=== PATIENT | male | born 1975 | race American Indian/Alaskan Native ===

== ENCOUNTER 2018-04-14 12:33 | Emergency (ER) | payer SELFPAY ==
[2018-04-14] MEDS ORDERED: ASPIRIN PO ONE (13:04)
[2018-04-14] MEDS ORDERED: NACL 0.9% 1000 ML 1,000 ML IV ONE (13:26)
[2018-04-14] MEDS ORDERED: ATIVAN IV ONE (13:26)
--- NOTE | 2018-04-14 13:31 | Emergency Department Report ---
ED Chest Pain HPI - General Chief Complaint: Chest Pain Stated Complaint: AMS Time Seen by Provider: 04/14/18 13:19 Source: family, EMS Mode of arrival: Stretcher Limitations: No Limitations - History of Present Illness Initial Comments: Patient is 42 years old male history of cocaine abuse. Patient brought to the ER after he collapsed at grocery store. Patient brought to the ER via EMS with chief complaint LEFT-sided chest pain pressure radiated to his left arm. Patient had similar episodes in 2014. Patient stated that he use cocaine 2 days ago. Patient denied any shortness of breath, nausea or vomiting. MD Complaint: chest pain Onset: during exertion Pain Location: left chest Severity: moderate Severity scale (0 -10): 6 Quality: pressure, squeezing Consistency: constant - Related Data Allergies Allergy/AdvReac Type Severity Reaction Status Date / Time No Known Allergies Allergy Unverified 04/14/18 13:04 Heart Score - HEART Score History: Moderately suspicious EKG: Non-specific Age: < 45 Risk factors: No known risk factors Troponin: < normal limit HEART Score: 2 - Critical Actions Critical Actions: 0-3 pts:0.9-1.7%risk of adverse cardiac event.Candidate for discharge ED Review of Systems ROS: Stated complaint: AMS Other details as noted in HPI Comment: All other systems reviewed and negative Constitutional: denies: chills, fever Respiratory: denies: cough, orthopnea, shortness of breath, SOB with exertion Cardiovascular: chest pain. denies: palpitations, dyspnea on exertion Gastrointestinal: denies: abdominal pain, nausea, vomiting, diarrhea, constipation, hematemesis, melena, hematochezia Neurological: denies: headache, weakness, numbness, paresthesias, abnormal gait , vertigo ED Past Medical Hx - Past Medical History Previous Medical History?: Yes Hx Heart Attack/AMI: Yes (x3) Additional medical history: TIA - Surgical History Past Surgical History?: No - Social History Smoking Status: Current Every Day Smoker Substance Use Type: Alcohol, Cocaine ED Physical Exam - General Limitations: No Limitations General appearance: alert, in no apparent distress - Head Head exam: Present: atraumatic, normocephalic, normal inspection - Eye Eye exam: Present: normal appearance - ENT ENT exam: Present: normal exam, normal orophraynx, mucous membranes moist - Neck Neck exam: Present: normal inspection, full ROM. Absent: tenderness, meningismus - Respiratory Respiratory exam: Present: normal lung sounds bilaterally. Absent: respiratory distress, wheezes, rales, rhonchi, stridor, chest wall tenderness, accessory muscle use, decreased breath sounds, prolonged expiratory - Cardiovascular Cardiovascular Exam: Present: bradycardia. Absent: systolic murmur, diastolic murmur - GI/Abdominal GI/Abdominal exam: Present: soft, normal bowel sounds. Absent: distended, tenderness, guarding, rebound, rigid, organomegaly, mass, bruit, pulsatile mass - Extremities Exam Extremities exam: Present: normal inspection, full ROM, normal capillary refill. Absent: tenderness, pedal edema, joint swelling, calf tenderness - Back Exam Back exam: Present: normal inspection, full ROM. Absent: tenderness, CVA tenderness (R), CVA tenderness (L), muscle spasm, paraspinal tenderness, vertebral tenderness - Neurological Exam Neurological exam: Present: alert, oriented X3, CN II-XII intact, normal gait - Skin Skin exam: Present: warm, intact, normal color ED Course Vital Signs 04/14/18 04/14/18 04/14/18 13:00 13:01 13:30 Temperature 97.8 F Pulse Rate 52 L 55 L 52 L Respiratory 16 22 28 H Rate Blood Pressure 125/71 118/70 119/75 O2 Sat by Pulse 99 100 100 Oximetry 04/14/18 04/14/18 14:00 14:30 Temperature Pulse Rate 51 L 54 L Respiratory 12 14 Rate Blood Pressure 116/68 112/74 O2 Sat by Pulse 100 100 Oximetry - Reevaluation(s) Reevaluation #1: 04/14/18 15:05 Patient stated that he is feeling better. 04/14/18 15:44 ED Medical Decision Making - Lab Data Result diagrams: 04/14/18 13:18 04/14/18 13:09 - EKG Data -: EKG Interpreted by Ri EKG shows normal: sinus rhythm Rate: bradycardia - EKG Data Interpretation: no acute changes - Radiology Data Radiology results: report reviewed Referring Physician: AMMY FIGUEROA Patient Name: NIRMALA LAGUNA Date of : 1975 Sex: Male Report Date: 2018-04-14 Report Status: Finalized Findings [facility] [address] [place] [address] XRay Report Signed Patient: NIRMALA LAGUNA MR#: [id number] : 1975 Acct:[id number] Age/Sex: 42 / M ADM Date: 04/14/18 Loc: ED Attending Dr: Ordering Physician: AMMY FIGUEROA Date of Service: 04/14/18 Procedure(s): XR chest 1V ap Accession Number(s): [id number] cc: AMMY FIGUEROA Fluoro Time In Minutes: PORTABLE CHEST: Chest pain An AP portable view of the chest demonstrates a normal cardiac contour considering the limits of this technique. The lungs are clear with no evidence of infiltrate, fluid or failure. IMPRESSION: Normal portable chest. Transcribed By: Robby Dictated By: DONNA WEINER MD Electronically Authenticated By: DONNA WEINER MD Signed Date/Time: 04/14/18 140 DD/ 140 TD/TT: 04/14/181402 - Medical Decision Making Discussed the patient is Dr. Alas, he agreed to admit the patient to his service. Critical care attestation.: If time is entered above; I have spent that time in minutes in the direct care of this critically ill patient, excluding procedure time. ED Disposition Clinical Impression: Chest pain, Cocaine abuse Disposition: OP ADMIT IP TO THIS HOSP Is pt being admited?: Yes Condition: Stable Instructions: Chest Pain (ED) Referrals: PRIMARY CARE, [Primary Care Provider] - 3-5 Days
[2018-04-14 13:38] LABS: Basophils % (Auto) 0.9 % (0.0-1.8); Eosinophils % (Auto) 0.4 % (0.0-4.3); Hematocrit 41.3 % (35.5-45.6); Lymphocytes # (Auto) 1.9 K/mm3 (1.2-5.4); Lymphocytes % (Auto) 54.9 % (13.4-35.0); Mean Corpuscular HGB Conc 34 % (32-34); Mean Corpuscular Hemoglobin 29 pg (28-32); Mean Corpuscular Volume 85 fl (84-94); Monocytes # (Auto) 0.3 K/mm3 (0.0-0.8); Monocytes % (Auto) 8.2 % (0.0-7.3); Platelet Count 236 K/mm3 (140-440); Red Blood Count 4.85 M/mm3 (3.65-5.03); Red Cell Distribution Width 14.3 % (13.2-15.2)
[2018-04-14 13:54] LABS: BUN/Creatinine Ratio 15; Blood Urea Nitrogen 17 mg/dL (9-20); Calcium 9.7 mg/dL (8.4-10.2); Hemolysis Index 13
--- NOTE | 2018-04-14 14:24 | XRay Report ---
PORTABLE CHEST: Chest pain An AP portable view of the chest demonstrates a normal cardiac contour considering the limits of this technique. The lungs are clear with no evidence of infiltrate, fluid or failure. IMPRESSION: Normal portable chest.
[2018-04-14 15:32] LABS: Alanine Aminotransferase 18 units/L (7-56); Albumin 4.2 g/dL (3.9-5)
[2018-04-14 15:35] LABS: Bilirubin,Direct < 0.2 mg/dL (0-0.2)
[2018-04-14 17:51] LABS: Amphetamine Screen,Urine PRESUMPTIVE NEGATIVE; Benzodiazepines Screen,Urine PRESUMPTIVE NEGATIVE; Methadone Screen,Urine PRESUMPTIVE NEGATIVE; Opiate Screen,Urine PRESUMPTIVE NEGATIVE
[2018-04-14 18:08] LABS: Cannabinoid Screen,Urine PRESUMPTIVE POSITIVE; Cocaine Screen,Urine PRESUMPTIVE POSITIVE
--- NOTE | 2018-04-14 19:15 | History and Physical Report ---
Medications and Allergies Allergies Allergy/AdvReac Type Severity Reaction Status Date / Time No Known Allergies Allergy Unverified 04/14/18 13:04 Home Medications Medication Instructions Recorded Confirmed Last Taken Type No Known Home Medications [No 04/14/18 04/14/18 Unknown History Reported Home Medications] Exam - Constitutional Vitals: Temp Pulse Resp BP Pulse Ox 97.8 F 61 15 111/60 100 04/14/18 13:00 04/14/18 18:30 04/14/18 18:30 04/14/18 18:30 04/14/18 18:30 Results - Labs CBC & Chem 7: 04/14/18 13:18 04/14/18 13:09 Labs: Abnormal lab results 04/14/18 Range/Units 13:18 WBC 3.5 L (4.5-11.0) K/mm3 Lymph % (Auto) 54.9 H (13.4-35.0) % Isabella % (Auto) 8.2 H (0.0-7.3) % Seg Neutrophils % 35.6 L (40.0-70.0) % Seg Neutrophils # 1.2 L (1.8-7.7) K/mm3
[2018-04-14 20:30] VITALS: BP 95/37
== END 2018-04-14 20:40 | disposition admitted as inpatient to this hospital (09) ==
LOC: ED 12:33
DX: R07.89 Other chest pain (principal); F14.10 Cocaine abuse, uncomplicated; I25.2 Old myocardial infarction; F17.200 Nicotine dependence, unspecified, uncomplicated
CPT/HCPCS: 36415; 71045; 80048; 80074; 80307; 84484; 85025; 85379; 93005; 93010; 96361; 96374; 99284; J2060; J7030

== ENCOUNTER 2019-09-04 02:29 | Emergency (ER) | payer SELFPAY ==
[2019-09-04] MEDS ORDERED: FAMOTIDINE 20 MG/2 ML INJ IV ONE (02:36)
[2019-09-04] MEDS ORDERED: SODIUM CHLORIDE 0.9% 1000 ML 1,000 ML IV ONE ×2 (02:36→04:00)
[2019-09-04] MEDS ORDERED: ONDANSETRON 4 MG/2 ML INJ IV ONE (02:36)
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
[2019-09-04 03:09] LABS: Hematocrit 37.9 % (35.5-45.6); Hemoglobin 12.5 gm/dl (11.8-15.2); Mean Corpuscular HGB Conc 33 % (32-34); Mean Corpuscular Volume 85 fl (84-94); Platelet Count 237 K/mm3 (140-440); Red Blood Count 4.48 M/mm3 (3.65-5.03)
--- NOTE | 2019-09-04 03:12 | XRay Report ---
CHEST 2 VIEWS INDICATION / CLINICAL INFORMATION: Chest Pain. COMPARISON: Chest radiograph 04/14/2018 FINDINGS: SUPPORT DEVICES: None. HEART / MEDIASTINUM: No significant abnormality. LUNGS / PLEURA: No significant pulmonary or pleural abnormality. No pneumothorax. ADDITIONAL FINDINGS: No significant additional findings. IMPRESSION: 1. No acute findings. Signer Name: Nanda Gamboa MD Signed: 09/04/2019 3:08 AM Workstation Name: [id number]
[2019-09-04 03:20] LABS: INR 1.12 (0.87-1.13)
[2019-09-04 03:22] LABS: Partial Thromboplastin Time 33.2 Sec. (24.2-36.6)
[2019-09-04 03:33] LABS: Alanine Aminotransferase 13 units/L (7-56); Albumin 4.3 g/dL (3.9-5); BUN/Creatinine Ratio 13; Blood Urea Nitrogen 15 mg/dL (9-20); Calcium 9.1 mg/dL (8.4-10.2); Hemolysis Index 30
[2019-09-04] MEDS ORDERED: ACETAMINOPHEN 325 MG TAB PO ONE (04:00)
[2019-09-04] MEDS ORDERED: SUCRALFATE 1 GM/10 ML ORAL LIQD PO ONE (04:00)
[2019-09-04 06:05] VITALS: BP 143/73
== END 2019-09-04 06:06 | disposition home or self-care (01) ==
LOC: ED 02:29
DX: R07.89 Other chest pain (principal); R11.2 Nausea with vomiting, unspecified; I25.2 Old myocardial infarction; F17.200 Nicotine dependence, unspecified, uncomplicated; F14.10 Cocaine abuse, uncomplicated
CPT/HCPCS: 36415; 71046; 80053; 82550; 83690; 83735; 84484; 85027; 85610; 85730; 93005; 93010; 96361; 96374; 96375; 99284; J2405; J7030; 80320; G0480

== ENCOUNTER 2020-03-19 15:53 | Emergency (ER) | payer SELFPAY ==
[2020-03-19] MEDS ORDERED: FAMOTIDINE 20 MG TAB PO ONE (17:00)
[2020-03-19] MEDS ORDERED: ACETAMINOPHEN 500 MG TAB PO ONE (17:00)
[2020-03-19] MEDS ORDERED: SUCRALFATE 1 GM/10 ML ORAL LIQD PO ONE (17:00)
--- NOTE | 2020-03-19 17:04 | Emergency Department Report ---
ED General Adult HPI - General Chief complaint: Weakness Stated complaint: WEAKNESS Time Seen by Provider: 03/19/20 16:22 Source: patient Mode of arrival: Stretcher Limitations: No Limitations - History of Present Illness Initial comments: Patient is a 44-year-old gentleman who I have evaluated in the past. He presents to the ER with a complaint of resolved chest tightness. The tightness started approximately 1 hour prior to presentation while he was mowing the lawn. Prior to this, he endorsed no complaints. The patient denies DVT and pulmonary embolism risk factors. He further denies cough, fever, and confirmed coronavirus exposure. The tightness in his chest did not radiate to the back, arms or neck. There is no vomiting, diaphoresis, o r exertional shortness of breath. No recent aspirin consumption. The patient had similar symptoms when I evaluated him in 2019. The patient does admit to recreational cannabis consumption, but denies cocaine consumption. He makes no complaint of dizziness to myself. There is no complaint of headache, neck pain, abdominal pain, shortness of breath, urinary symptoms, focal extremity weakness and or numbness, there is no complaint of ataxia, there is no complaints of loss of vision, there is a denial of fever. -: Gradual, hour(s) Location: chest Radiation: non-radiation Severity scale (0 -10): 5 Quality: other (Pressure-like in nature) Consistency: intermittent Improves with: none Worsens with: none Associated Symptoms: denies other symptoms - Related Data Previous Rx's Medication Instructions Recorded Last Taken Type Pantoprazole [Protonix TAB] 20 mg PO QDAY #30 tablet.dr 04/14/18 Unknown Rx Aspirin [Aspirin BABY CHEW TAB] 81 mg PO QDAY #30 tab.chew 09/04/19 Unknown Rx Famotidine [Pepcid] 20 mg PO BID #60 tablet 09/04/19 Unknown Rx Ondansetron [Zofran Odt] 4 mg PO Q8HR PRN #20 tab.rapdis 09/04/19 Unknown Rx Allergies Allergy/AdvReac Type Severity Reaction Status Date / Time No Known Allergies Allergy Unverified 04/14/18 13:04 ED Review of Systems ROS: Stated complaint: WEAKNESS Other details as noted in HPI Constitutional: denies: fever Eyes: denies: eye discharge ENT: denies: congestion Respiratory: denies: wheezing Cardiovascular: chest pain. denies: syncope Gastrointestinal: denies: vomiting Genitourinary: as per HPI. denies: urgency Musculoskeletal: as per HPI Skin: as per HPI Neurological: as per HPI Psychiatric: as per HPI Hematological/Lymphatic: as per HPI ED Past Medical Hx - Past Medical History Previous Medical History?: Yes Hx Hypertension: Yes Hx CVA: Yes Hx Heart Attack/AMI: Yes (x1) Hx Asthma: Yes Additional medical history: TIA - Social History Smoking Status: Current Every Day Smoker Substance Use Type: Alcohol, Marijuana - Medications Home Medications: Home Medications Medication Instructions Recorded Confirmed Last Taken Type Pantoprazole [Protonix TAB] 20 mg PO QDAY #30 tablet.dr 04/14/18 Unknown Rx Aspirin [Aspirin BABY CHEW TAB] 81 mg PO QDAY #30 tab.chew 09/04/19 Unknown Rx Famotidine [Pepcid] 20 mg PO BID #60 tablet 09/04/19 Unknown Rx Ondansetron [Zofran Odt] 4 mg PO Q8HR PRN #20 tab.rapdis 09/04/19 Unknown Rx ED Physical Exam - General Limitations: No Limitations General appearance: alert, in no apparent distress - Head Head exam: Present: atraumatic, normocephalic - Eye Eye exam: Present: normal appearance, EOMI, other (Visual acuity intact to finger counting, color perception, reading at a close distance). Absent: nystagmus - ENT ENT exam: Present: normal exam, normal orophraynx, mucous membranes moist, normal external ear exam - Neck Neck exam: Present: normal inspection, full ROM. Absent: tenderness, meningismus - Respiratory Respiratory exam: Present: normal lung sounds bilaterally. Absent: respiratory distress - Cardiovascular Cardiovascular Exam: Present: normal rhythm, bradycardia, normal heart sounds. Absent: systolic murmur, diastolic murmur, rubs, gallop - GI/Abdominal GI/Abdominal exam: Present: soft. Absent: distended, tenderness, guarding, rebound, rigid, pulsatile mass - Rectal Rectal exam: Present: deferred - Extremities Exam Extremities exam: Present: normal inspection, full ROM, other (2+ pulses noted in the bilateral upper and lower extremities. There is no palpable cord. negative Homans sign. Muscular compartments are soft. The pelvis is stable.). Absent: pedal edema, calf tenderness - Back Exam Back exam: Present: normal inspection. Absent: tenderness, CVA tenderness (R), CVA tenderness (L), paraspinal tenderness, vertebral tenderness - Neurological Exam Neurological exam: Present: alert, oriented X3, normal gait, other (No facial droop. Tongue midline. Extraocular movements intact bilaterally. Facial sensation intact to light touch in V1, V2, V3 distribution bilaterally. 5 and a 5 strength in 4 extremities. Sensation intact to light touch in 4 extremities. ). Absent: motor sensory deficit - Psychiatric Psychiatric exam: Present: normal affect, normal mood - Skin Skin exam: Present: warm, dry, intact, normal color. Absent: rash ED Course Vital Signs 03/19/20 03/19/20 03/19/20 16:08 16:28 16:30 Temperature 98.7 F Pulse Rate 59 L 63 58 L Respiratory 24 18 Rate Blood Pressure 127/82 127/82 O2 Sat by Pulse 99 99 Oximetry 03/19/20 03/19/20 03/19/20 16:45 17:00 17:15 Temperature Pulse Rate 60 56 L 57 L Respiratory 17 15 15 Rate Blood Pressure 133/84 133/79 116/81 O2 Sat by Pulse 96 98 100 Oximetry 03/19/20 03/19/20 03/19/20 17:30 17:45 18:00 Temperature Pulse Rate 54 L 57 L 53 L Respiratory 15 13 12 Rate Blood Pressure 130/80 124/74 130/75 O2 Sat by Pulse 100 99 100 Oximetry 03/19/20 03/19/20 03/19/20 18:15 18:31 18:45 Temperature Pulse Rate 57 L 55 L 54 L Respiratory 14 16 15 Rate Blood Pressure 130/75 131/83 131/88 O2 Sat by Pulse 100 100 100 Oximetry 03/19/20 03/19/20 03/19/20 19:00 19:15 19:30 Temperature Pulse Rate 58 L 53 L 55 L Respiratory 14 13 13 Rate Blood Pressure 129/81 134/80 122/88 O2 Sat by Pulse 100 100 100 Oximetry 03/19/20 03/19/20 20:23 20:55 Temperature Pulse Rate Respiratory Rate Blood Pressure 122/88 122/88 O2 Sat by Pulse Oximetry - Reevaluation(s) Reevaluation #1: 03/19/20 18:17 Differential diagnosis, including but not limited to: GERD, gastritis, hiatal hernia, pneumonia, acute coronary syndrome, heat exhaustion Assessment and plan: 44-year-old gentleman, who is afebrile with reassuring vital signs, clinically sober, in no acute distress, no pulmonary embolism or DVT risk factors, low risk by Wells criteria, PERC negative, EKG unchanged from prior, troponin negative x1, presenting with chest discomfort. There is no complaint of dizziness. He has a GCS of 15 and is clinically sober at this time. On multiple evaluations, he is noted to be playing and using his cellular phone. Patient at low risk for major adverse cardiac event as per heart score; score less than 3. Patient counseled to abstain from cannabis consumption. He will be observed on a court recording monitor, He was treated with appropriate medication, repeat EKG and troponin are pending at this time. Reevaluation #2: 03/19/20 18:19 Elevated creatinine kinase reviewed and appreciated, given young age, normal renal function, this is likely related to recent activity, mowing the lawn. He will be given fluids for this, and he can follow-up with an outpatient physician to recheck this Reevaluation #3: 03/19/20 20:16 Repeat EKG unchanged from prior. Patient resting comfortably, in stretcher, and in no acute distress, continues to play with cellular phone Reevaluation #4: 03/19/20 20:59 Vital signs stable. Patient in no acute distress. Suitable for outpatient follow-up and management. ED Medical Decision Making - Lab Data Result diagrams: 03/19/20 17:17 03/19/20 17:17 Vital Signs (72 hours) 03/19/20 03/19/20 03/19/20 16:08 16:28 16:30 Temperature 98.7 F Pulse Rate 59 L 63 58 L Respiratory 24 18 Rate Blood Pressure 127/82 127/82 O2 Sat by Pulse 99 99 Oximetry Lab Results 03/19/20 03/19/20 03/19/20 Range/Units 17:17 17:17 17:17 Hgb 13.7 (11.8-15.2) gm/dl Hct 42.0 (35.5-45.6) % Plt Count 263 (140-440) K/mm3 PT 13.0 (12.2-14.9) Sec. INR 0.97 (0.87-1.13) Sodium 140 (137-145) mmol/L Potassium 4.5 (3.6-5.0) mmol/L Chloride 103.4 (98-107) mmol/L Carbon Dioxide 24 (22-30) mmol/L Anion Gap 17 mmol/L BUN 16 (9-20) mg/dL Creatinine 1.1 (0.8-1.5) mg/dL Estimated GFR > 60 ml/min BUN/Creatinine Ratio 15 % Glucose 97 (75-100) mg/dL Calcium 9.7 (8.4-10.2) mg/dL Magnesium (1.7-2.3) mg/dL Total Creatine Kinase (55-170) units/L Troponin T < 0.010 (0.00-0.029) ng/mL 03/19/20 Range/Units 17:17 Hgb (11.8-15.2) gm/dl Hct (35.5-45.6) % Plt Count (140-440) K/mm3 PT (12.2-14.9) Sec. INR (0.87-1.13) Sodium (137-145) mmol/L Potassium (3.6-5.0) mmol/L Chloride (98-107) mmol/L Carbon Dioxide (22-30) mmol/L Anion Gap mmol/L BUN (9-20) mg/dL Creatinine (0.8-1.5) mg/dL Estimated GFR ml/min BUN/Creatinine Ratio % Glucose (75-100) mg/dL Calcium (8.4-10.2) mg/dL Magnesium 2.30 (1.7-2.3) mg/dL Total Creatine Kinase 1008 H (55-170) units/L Troponin T (0.00-0.029) ng/mL - EKG Data -: EKG Interpreted by Sc EKG shows normal: sinus rhythm, axis, intervals Rate: bradycardia - EKG Data When compared to previous EKG there are: no significant change Interpretation: unchanged when compared t 03/19/20 18:14 EKG today appears to be unchanged from prior EKG from April 14, 2018 Sinus rhythm, bradycardia, normal axis, high left ventricular voltage, early repolarization, not a STEMI. Intervals also within normal limits. 03/19/20 20:17 EKG #2 is unchanged from prior - Radiology Data Radiology results: report reviewed, image reviewed Print Report Referring Physician: BRUNO LEDESMA Patient Name: NIRMALA LAGUNA Date of : 1975 Sex: Male Report Date: 2020-03-19 Report Status: Finalized Findings [facility] [address] [place] [address] XRay Report Signed Patient: NIRMALA LAGUNA MR#: [id number] 37 : 1975 Acct:[id number] Age/Sex: 44 / M ADM Date: 03/19/20 Loc: ED Attending Dr: Ordering Physician: BRUNO LEDESMA MD Date of Service: 03/19/20 Procedure(s): XR chest routine 2V Accession Number(s): [id number] cc: BRUNO LEDESMA MD Fluoro Time In Minutes: CHEST 2 VIEWS INDICATION / CLINICAL INFORMATION: Chest Pain. COMPARISON: 09/04/2019 FINDINGS: SUPPORT DEVICES: None. HEART / MEDIASTINUM: No significant abnormality. LUNGS / PLEURA: No significant pulmonary or pleural abnormality. No pneumothorax. ADDITIONAL FINDINGS: No significant additional findings. IMPRESSION: 1. No acute findings. Signer Name: Kade Ochoa MD Signed: 03/19/2020 5:23 PM Workstation Name: [id number] Transcribed By: MD Dictated By: Kade Ochoa MD Electronically Authenticated By: Kade Ochoa MD Signed Date/Time: 03/19/201722 DD/ 21 TD/TT: Critical care attestation.: If time is entered above; I have spent that time in minutes in the direct care of this critically ill patient, excluding procedure time. ED Disposition Clinical Impression: Chest pressure, History of marijuana use Disposition: DC-01 TO HOME OR SELFCARE Is pt being admited?: No Does the pt Need Aspirin: No Condition: Stable Additional Instructions: Patient may take [id number] Tylenol, 500 mg by mouth, every 4-6 hours as needed for pain, alternating with fixl-twe-[id number] ibuprofen, 400 mg by mouth, with food, every 6 hours as needed for pain, and patient may also take tfqw-[id number] Pepcid/famotidine, 20 mg by mouth, once every 12-24 hours. Recommend that patient avoid consumption of cannabis/marijuana. Drink 4 to 6 cups of water per day indefinitely. Avoid consumption of heavy and/or spicy foods. Follow-up with a primary care doctor or residential aide within the next 3 to 5days for further follow-up on history of chest pressure and discomfort. Return to the emergency room right away with new, worsened or different symptoms, or symptoms not present on the initial emergency room evaluation. Referrals: HOMERO SUE MD [Staff Physician] - 3-5 Days SEB ARGUETA MD [Staff Physician] - 3-5 Days CHETAN DWYER MD [Staff Physician] - 3-5 Days
--- NOTE | 2020-03-19 17:27 | XRay Report ---
CHEST 2 VIEWS INDICATION / CLINICAL INFORMATION: Chest Pain. COMPARISON: 09/04/2019 FINDINGS: SUPPORT DEVICES: None. HEART / MEDIASTINUM: No significant abnormality. LUNGS / PLEURA: No significant pulmonary or pleural abnormality. No pneumothorax. ADDITIONAL FINDINGS: No significant additional findings. IMPRESSION: 1. No acute findings. Signer Name: Kade Ochoa MD Signed: 03/19/2020 5:23 PM Workstation Name: [id number]
[2020-03-19 17:28] LABS: Hemoglobin 13.7 gm/dl (11.8-15.2)
[2020-03-19 17:37] LABS: INR 0.97 (0.87-1.13)
[2020-03-19 17:48] LABS: BUN/Creatinine Ratio 15; Blood Urea Nitrogen 16 mg/dL (9-20); Calcium 9.7 mg/dL (8.4-10.2); Hemolysis Index 6
[2020-03-19 21:08] VITALS: BP 122/88
== END 2020-03-19 21:11 | disposition home or self-care (01) ==
LOC: ED 15:53
DX: R07.89 Other chest pain (principal); I10 Essential (primary) hypertension; I25.2 Old myocardial infarction; J45.909 Unspecified asthma, uncomplicated; F17.200 Nicotine dependence, unspecified, uncomplicated; F14.10 Cocaine abuse, uncomplicated; Z86.73 Personal history of transient ischemic attack (TIA), and cerebral infarction without residual deficits; Z79.899 Other long term (current) drug therapy
CPT/HCPCS: 36415; 71046; 80048; 82550; 83735; 84484; 85014; 85018; 85049; 85610; 93005

== ENCOUNTER 2020-04-03 13:18 | Emergency (ER) | payer SELFPAY ==
[2020-04-03] MEDS ORDERED: amLODIPine 5 MG TAB PO ONE (13:28)
--- NOTE | 2020-04-03 13:29 | Emergency Department Report ---
ED General Adult HPI - General Stated complaint: ARM SPASMS PUI?: No Time Seen by Provider: 04/03/20 13:25 Source: patient Mode of arrival: Ambulatory Limitations: No Limitations - History of Present Illness Initial comments: Chief complaint: "I was hyperventilating." HPI: This is a 44-year-old male with history of hypertension [place] and CVA who presents with left arm tingling hyperventilation during argument with his girlfriend. He is currently homeless. He has been noncompliant with blood pressure medication for 6 months due to lack of insurance and financial situation. He feels much better now. As a result of CVA, he has residual left facial left arm weakness which is unchanged. Left arm tingling has subsided. He had cramps in both hands as a result of hyperventilating. -: Sudden Location: left, upper extremity Severity scale (0 -10): 0 Quality: other (Tingling) Consistency: constant Improves with: other (Relaxation) Worsens with: none Associated Symptoms: other (Hyperventilation) - Related Data Previous Rx's Medication Instructions Recorded Last Taken Type Pantoprazole [Protonix TAB] 20 mg PO QDAY #30 tablet. 04/14/18 Unknown Rx Aspirin [Aspirin BABY CHEW TAB] 81 mg PO QDAY #30 tab.chew 09/04/19 Unknown Rx Famotidine [Pepcid] 20 mg PO BID #60 tablet 09/04/19 Unknown Rx Ondansetron [Zofran Odt] 4 mg PO Q8HR PRN #20 tab.rapdis 09/04/19 Unknown Rx Allergies Allergy/AdvReac Type Severity Reaction Status Date / Time No Known Allergies Allergy Unverified 04/14/18 13:04 ED Review of Systems ROS: Stated complaint: ARM SPASMS Other details as noted in HPI Comment: All other systems reviewed and negative Constitutional: denies: fever, malaise Respiratory: denies: cough Cardiovascular: denies: chest pain ED Past Medical Hx - Past Medical History Previous Medical History?: Yes Hx Hypertension: Yes Hx CVA: Yes Hx Heart Attack/AMI: Yes (x1) Hx Asthma: Yes Additional medical history: TIA - Social History Smoking Status: Current Every Day Smoker Substance Use Type: Alcohol, Marijuana - Medications Home Medications: Home Medications Medication Instructions Recorded Confirmed Last Taken Type Pantoprazole [Protonix TAB] 20 mg PO QDAY #30 tablet. 04/14/18 Unknown Rx Aspirin [Aspirin BABY CHEW TAB] 81 mg PO QDAY #30 tab.chew 09/04/19 Unknown Rx Famotidine [Pepcid] 20 mg PO BID #60 tablet 09/04/19 Unknown Rx Ondansetron [Zofran Odt] 4 mg PO Q8HR PRN #20 tab.rapdis 09/04/19 Unknown Rx ED Physical Exam - General General appearance: alert, in no apparent distress, anxious - Head Head exam: Present: atraumatic, normocephalic - Eye Eye exam: Present: normal appearance - ENT ENT exam: Present: mucous membranes moist - Neck Neck exam: Present: normal inspection, full ROM - Respiratory Respiratory exam: Present: normal lung sounds bilaterally. Absent: respiratory distress, wheezes, rales, rhonchi - Cardiovascular Cardiovascular Exam: Present: regular rate, normal rhythm, normal heart sounds. Absent: systolic murmur, diastolic murmur, rubs, gallop - GI/Abdominal GI/Abdominal exam: Present: soft, normal bowel sounds. Absent: distended, tenderness, guarding, rebound - Rectal Rectal exam: Present: deferred - Extremities Exam Extremities exam: Present: normal inspection - Neurological Exam Neurological exam: Present: alert, oriented X3 - Psychiatric Psychiatric exam: Present: normal affect, anxious - Skin Skin exam: Present: warm, dry, intact, normal color. Absent: rash ED Course Vital Signs 04/03/20 13:29 Temperature 98.5 F Pulse Rate 71 Respiratory 10 L Rate Blood Pressure 134/85 O2 Sat by Pulse 99 Oximetry ED Medical Decision Making - EKG Data EKG shows normal: sinus rhythm, axis, intervals, QRS complexes, ST-T waves Rate: normal - EKG Data Interpretation: normal EKG - Medical Decision Making Mr. Guy presents with hyperventilation syndrome after argument with girlfriend. I do not suspect ACS or CVA. EKG CBC chemistry within normal limits. Patient is discharged home. Critical care attestation.: If time is entered above; I have spent that time in minutes in the direct care of this critically ill patient, excluding procedure time. ED Disposition Clinical Impression: Stress at home, Hyperventilation syndrome Disposition: DC- TO HOME OR SELFCARE Is pt being admited?: No Does the pt Need Aspirin: No Condition: Stable Referrals: HOMERO SUE MD [Staff Physician] - 3-5 Days
[2020-04-03 14:15] LABS: Basophils # (Auto) 0.1 K/mm3 (0.0-0.1); Basophils % (Auto) 1.2 % (0.0-1.8); Eosinophils % (Auto) 0.7 % (0.0-4.3); Hematocrit 41.8 % (35.5-45.6); Hemoglobin 13.6 gm/dl (11.8-15.2); Lymphocytes # (Auto) 1.5 K/mm3 (1.2-5.4); Lymphocytes % (Auto) 31.3 % (13.4-35.0); Mean Corpuscular HGB Conc 33 % (32-34); Mean Corpuscular Volume 86 fl (84-94); Monocytes # (Auto) 0.4 K/mm3 (0.0-0.8); Monocytes % (Auto) 7.8 % (0.0-7.3); Platelet Count 236 K/mm3 (140-440); Red Blood Count 4.85 M/mm3 (3.65-5.03); Red Cell Distribution Width 14.4 % (13.2-15.2)
[2020-04-03 14:34] LABS: BUN/Creatinine Ratio 17; Blood Urea Nitrogen 22 mg/dL (9-20); Calcium 10.2 mg/dL (8.4-10.2); Hemolysis Index 2
[2020-04-05 12:40] VITALS: BP 122/82
== END 2020-04-03 14:53 | disposition home or self-care (01) ==
LOC: ED 13:18
DX: F45.8 Other somatoform disorders (principal); I25.2 Old myocardial infarction; I10 Essential (primary) hypertension; J45.909 Unspecified asthma, uncomplicated; Z63.0 Problems in relationship with spouse or partner; Z86.73 Personal history of transient ischemic attack (TIA), and cerebral infarction without residual deficits; F17.200 Nicotine dependence, unspecified, uncomplicated; F12.10 Cannabis abuse, uncomplicated; Z79.899 Other long term (current) drug therapy
CPT/HCPCS: 36415; 80048; 85025; 93005